=== PATIENT | female | born 1940 | race Caucasian/White ===

== ENCOUNTER 2018-12-18 08:00 | Outpatient (CLI) | payer MEDICARE, OTHER ==
[2018-12-18 18:08] LABS: TOTAL PROTEIN,URINE TIMED < 6 mg/dL; TOTAL VOLUME 24HRS,URINE 2500 mL
== END 2018-12-18 23:59 | disposition home or self-care (01) ==
LOC: LAB.F 08:00
DX: R80.9 Proteinuria, unspecified (principal)
CPT/HCPCS: 84156